=== PATIENT | female | born 1995 | race Caucasian/White ===

== ENCOUNTER 2020-02-13 14:45 | Emergency (ER) | payer MEDICAID ==
[~2020-02-13] VITALS: Ht 167.6 cm; Wt 90.0 kg
[2020-02-13 14:48] VITALS: BP 120/83; PULSE 59; TEMP 98.2
[2020-02-13 15:32] LABS: BASO # 0.1 (0.0-0.2); BASO % 0.6 % (0.0-2.0); EOS # 0.1 (0.0-0.7); EOS % 1.1 % (0-4.0); GRAN # 4.5 (1.4-6.5); GRAN % 53.3 % (42.2-75.2); HEMATOCRIT 39.3 % (37.0-47.0); HEMOGLOBIN 13.1 g/dl (12.5-16.0); LYMPH # 3.4 (1.2-3.4); LYMPH % 40.2 % (20.0-51.0); MEAN CELL VOLUME 87 fl (80.0-100.0); MEAN CORPUSCULAR HEMOGLOBIN 29 pg (27.0-31.0); MEAN CORPUSCULAR HGB CONC 33 g/dl (33.0-37.0); MONO # 0.4 (0.1-0.6); MONO % 4.7 % (1.7-9.3); PLATELET COUNT 239 K/mm3 (130-400); RED BLOOD COUNT 4.52 M/mm3 (4.10-5.30); REDCELL DISTRIBUTION WIDTH-CV 12.5 % (11.5-14.5)
[2020-02-13 15:54] LABS: ALCOHOL(ethanol),MEDICAL < 10 mg/dL
[2020-02-13 16:03] LABS: BLOOD UREA NITROGEN 11 mg/dL (7-17); CREATININE, serum 0.8 (0.52-1.25); GLUCOSE 87 mg/dL (74-106); POTASSIUM 4.2 mmol/L (3.4-5.0); SODIUM 136 mmol/L (137-145)
[2020-02-13 16:04] LABS: ANION GAP 4 mmol/L (7-16); CARBON DIOXIDE 29 mmol/L (22-30); CHLORIDE 103 mmol/L (98-107)
[2020-02-13 16:05] LABS: ALANINE AMINOTRANSFERASE 19 U/L (4-34); ALBUMIN 4.1 gm/dL (3.5-5.0); ALKALINE PHOSPHATASE 72 U/L (50-136); AST,SGOT 28 U/L (15-37); BILIRUBIN,TOTAL 0.5 mg/dL (0.0-1.0); CALCIUM 9.1 mg/dL (8.4-10.2)
== END 2020-02-13 17:00 | disposition left against medical advice (07) ==
LOC: COL.ER 14:45
PROVIDERS: Family Medicine
DX: S06.0X0A Concussion without loss of consciousness, initial encounter (principal); S40.012A Contusion of left shoulder, initial encounter; S70.02XA Contusion of left hip, initial encounter; R10.12 Left upper quadrant pain; R46.4 Slowness and poor responsiveness; Z53.29 Procedure and treatment not carried out because of patient's decision for other reasons; Z88.5 Allergy status to narcotic agent; V48.6XXA Car passenger injured in noncollision transport accident in traffic accident, initial encounter; Y92.410 Unspecified street and highway as the place of occurrence of the external cause
CPT/HCPCS: J7120